=== PATIENT | male | born 1965 | race Caucasian/White ===

== ENCOUNTER 2017-09-30 06:33 | Emergency (ER) | payer OTHER ==
[2017-09-30 06:40] VITALS: BP 124/89
[2017-09-30] MEDS ORDERED: PENICILLIN VK 250 MG TABLET PO STA (06:54)
[2017-09-30] MEDS ORDERED: IBUPROFEN 600 MG TABLET PO STA (06:54)
--- NOTE | 2017-09-30 06:56 | ED Physician Documentation ---
PD HPI HEENT - Stated complaint Stated Complaint: LT JAW PX - Chief complaint Chief Complaint: Heent - History obtained from History obtained from: Patient - History of Present Illness Timing - onset: How many days ago (3) Timing - details: Gradual onset, Still present Location: Tooth Associated symptoms: No: Fever, Congestion Similar symptoms before: No diagnosis Recently seen: Not recently seen - Additional information Additional information: Patient is a 52 year old male with poor dentition who is presenting to the emergency department tooth pain. Patient states that it has been going on the last couple of days and has become progressively worse. Patient states that he did pull out another tooth not too long ago for dental pain as well. Review of Systems Ten Systems: 10 systems reviewed and negative Constitutional: denies: Fever, Chills Throat: reports: Dental pain / toothache PD PAST MEDICAL HISTORY - Past Medical History Past Medical History: No - Past Surgical History Past Surgical History: No General: Appendectomy - Present Medications Home Medications: Ambulatory Orders Medication Instructions Recorded Confirmed cephALEXin [Keflex] 500 mg PO Q6H #12 capsule 03/13/14 Chlorhexidine Gluconate 15 ml MM Q6HR #1 mouthwash 09/30/17 Penicillin V Potassium 500 mg PO Q6HR 10 Days tablet 09/30/17 - Allergies Allergies/Adverse Reactions: Allergies Allergy/AdvReac Type Severity Reaction Status Date / Time No Known Drug Allergies Allergy Verified 09/30/17 06:40 - Social History Does the pt smoke?: Yes Smoking Status: Current every day smoker Does the pt drink ETOH?: Yes Does the pt have substance abuse?: Yes - Immunizations Immunizations are current?: Yes PD ED PE NORMAL - General General: Alert and oriented X 3 - HEENT HEENT: Atraumatic - Neck Neck: No adenopathy - Cardiac Cardiac: RRR - Respiratory Respiratory: No respiratory distress - Abdomen Abdomen: Non distended - Derm Derm: Normal color, Warm and dry - Extremities Extremities: No deformity - Neuro Neuro: Alert and oriented X 3 Eye Opening: Spontaneous PD ED PE EXPANDED - General General: Alert, In Pain - HEENT HEENT: Dental decay, Dental TTP, Dental abscess Results - Vitals Vitals: Vital Signs - 24 hr 09/30/17 06:36 Temperature 36.2 C L Heart Rate 66 Respiratory 16 Rate Blood Pressure 124/89 H O2 Saturation 100 Oxygen O2 Source Room air Procedures - Regional nerve block Nerve block site: Inferior alveolar Right / left: Right Nerve block anesthesia: Marcaine 0.5% Nerve block aftercare: Moderate Anesthesia, Patient tolerated well, No complications PD MEDICAL DECISION MAKING - ED course Complexity details: reviewed old records, reviewed results, re-evaluated patient , d/w patient, d/w family ED course: Patient was seen and examined at bedside. Patient did have multiple dental caries and possible small abscess. dental block was performed and needle aspiration. Patient was started on antibiotics and was stable for discharge with outpatient follow up. - Sepsis Event Vital Signs: Vital Signs - 24 hr 09/30/17 06:36 Temperature 36.2 C L Heart Rate 66 Respiratory 16 Rate Blood Pressure 124/89 H O2 Saturation 100 Oxygen O2 Source Room air Departure - Departure Disposition: 01 Home, Self Care Clinical Impression: Pain due to dental caries Condition: Good Instructions: ED Tooth Pain Follow-Up: max [facility] [Other] Prescriptions: Chlorhexidine Gluconate 15 ml MM Q6HR #1 mouthwash Penicillin V Potassium 500 mg PO Q6HR 10 Days tablet Comments: Your pain today is being caused by dental caries and infection. You have been prescribed oral antibiotics and antibiotic rinse. You should take motrin and tylenol as needed for pain. Ultimately you will need to see a dentist for further evaluation and care. Discharge Date/Time: 09/30/17 07:22
== END 2017-09-30 07:22 | disposition home or self-care (01) ==
LOC: ED 06:33
DX: K08.89 Other specified disorders of teeth and supporting structures (principal); K02.9 Dental caries, unspecified; F17.200 Nicotine dependence, unspecified, uncomplicated
CPT/HCPCS: 64400; 99283; A9270